=== PATIENT | female | born 1945 | race Caucasian/White ===

== ENCOUNTER 2022-09-29 09:49 | Observation (INO) ==
[2022-09-29] MEDS ORDERED: IOPAMIDOL 100 ML BOTTLE IV ONE (09:50)
--- NOTE | 2022-09-29 09:59 | Emergency Department Note ---
HPI General Chief complaint: Dizziness Stated complaint: dizzy Time Seen by Provider: 09/29/22 09:59 Source: patient and family Mode of arrival: wheelchair Limitations: no limitations History of Present Illness HPI Narrative: Narrative: Patient is a 76-year-old female with a past medical history of hypertension, st roke, vertigo, hyperlipidemia, and adjustment disorder with mixed anxiety and depressed mood who presents to the emergency department due to dizziness and tingling. She initially went to [facility] care, and they decided to send her to the emergency department due to concern for left upper extremity tingling. At this time she states that at approximately 845 she began to have symptoms. She states at that time she had dizziness, which she describes as room spinning dizziness, nausea, and tingling throughout her body. She states that this then became just left hand tingling, but she also describes a pain in her left hand. Her son and [id number] are present and they describe some word finding difficulty and also difficulty in interpreting what is being said to her. She does endorse some weakness in left upper and lower extremities. She denies any other symptoms at this time. Related Data Home Medications Medication Instructions Recorded Confirmed magnesium oxide 400 mg (241.3 mg 800 mg PO HS 08/17/16 09/29/22 magnesium) tablet cyanocobalamin (vitamin B-12) 500 500 mcg PO QDAY 08/25/17 09/29/22 mcg tablet (Vitamin B-12) pantoprazole 40 mg tablet,delayed 40 mg PO QDAY 11/15/18 09/29/22 release aspirin 81 mg tablet,delayed 81 mg PO .3x/week 09/13/19 09/29/22 release (Aspir-) trazodone 50 mg PO DAILY 09/29/22 09/29/22 Previous Rx's Medication Instructions Recorded estradiol 1 mg tablet 1 mg PO QDAY #90 tabs 10/12/21 rosuvastatin 5 mg tablet 5 mg PO QDAY #90 tabs 10/12/21 solifenacin 5 mg tablet 5 mg PO QDAY #90 tabs 10/12/21 bupropion HCl 300 mg 24 hr tablet, 300 mg PO DAILY depression #90 tabs 06/16/22 extended release Allergies Allergy/AdvReac Type Severity Reaction Status Date / Time Sulfa (Sulfonamide Allergy Severe Anaphylaxis Verified 09/29/22 09:53 Antibiotics) morphine Allergy Shakes Verified 09/29/22 09:53 after surgery meperidine [From Demerol] AdvReac Intermediate shaking Verified 09/29/22 09:53 rosuvastatin [From Crestor] AdvReac Unknown Muscle Pain Verified 09/29/22 09:53 Review of Systems ROS ROS Narrative: Narrative: Constitutional: Denies fever or weakness Eyes: Denies eye pain or vision change ENT ED: Denies throat pain or rhinorrhea Cardiovascular: Denies chest pain, dyspnea on exertion, orthopnea or edema Respiratory: Denies shortness of breath or cough Gastrointestinal: Denies abdominal pain, nausea, vomiting, diarrhea, constipation, hematochezia or melena Musculoskeletal: Denies back pain or myalgia Integumentary: Denies rash or lesions Neurological: Reports weakness, numbness and dizziness; Denies headache, confusion or abnormal gait Endocrine: Denies fatigue or polyuria Hematological/Lymphatic: Denies easy bleeding or easy bruising PFSH Narrative Patient History Narrative: Narrative: Medical/Surgical/Family History All Active Problems (Updated 09/29/22 @ 15:14 by Morro Staton MD) Dizziness (Acute) Weakness (Acute) Adjustment disorder with mixed anxiety and depressed mood (Acute) Persistent fatigue after COVID-19 (Acute) Exposure to COVID-19 virus (Acute) Syncope and collapse (Acute) Right sciatic nerve pain (Chronic) Thrush, oral (Acute) Geographic tongue (Chronic) Hypertension, essential (Chronic) Medicare annual wellness visit, subsequent (Acute) Shingles (Acute) Unsteady gait (Acute) Cellulitis (Acute) Bee sting (Acute) Epistaxis (Acute) Herpes zoster (Acute) Impetigo (Acute) Decreased calculated GFR (Acute) Sprain of cervical neck (Acute) Epistaxis not due to trauma (Acute) Neck pain (Chronic) OAB (overactive bladder) (Chronic) Cellulitis (Acute) Stroke (Chronic ~03/02/15) Joint pain (Chronic) Acid reflux (Chronic) Upper respiratory infection (Acute) Maxillary sinusitis (Acute) Cataracts, bilateral (Chronic) Bacterial conjunctivitis (Acute) Knee pain (Acute) Osteoarthritis (Chronic) Sorethroat (Acute) Esophagitis (Chronic) Bee sting reaction (Chronic) Unstable balance (Chronic) Vertigo (Chronic) Heterotopia (Chronic) Skin lesion of right upper extremity (Chronic) Foot arch pain (Chronic) Urinary incontinence (Chronic) Stress reaction (Chronic 03/29/13) Skin sensation disturbance (Chronic) Allergic dermatitis (Chronic 07/30/13) Poliomyelitis acute, late effect (Chronic) Dysphagia (Chronic 09/01/13) Osteopenia (Chronic) Myalgia (Chronic 04/25/14) Leukocytopenia (Chronic) Irritable bowel syndrome (Chronic) Insomnia (Chronic 03/29/13) Hyperlipidemia (Chronic) Hormone replacement therapy (postmenopausal) (Chronic) Hemorrhoids (Chronic 07/20/12) Diplopia (Chronic 02/01/12) Depressive disorder (Chronic) Benign neoplasm of colon (Chronic) Atrophy of muscle of right lower leg (Chronic 07/30/13) TIA (transient ischemic attack) (Chronic 01/18/12) Medical History (Updated 09/29/22 @ 15:14 by Morro Staton MD) Abscess of skin or subcutaneous tissue Acid reflux Well-controlled with Protonix 40 mg every morning Allergic dermatitis (07/30/13) Pruritic Dermatitis Atrophy of muscle of right lower leg (07/30/13) D/T polio Bee sting Bee sting reaction Benign neoplasm of colon 06/12 adenoma. 07/16 normal. 10 year follow-up. Bursitis of right patella (02/01/13) Right knee Bursitis, hip Candidal vaginitis (07/31/14) Cellulitis Cerumen impaction (09/24/14) Decreased calculated GFR GFR 49. Possible CKD stage III. We will check BMP again now. Consider discontinuing NSAIDs Depressive disorder Diplopia (02/01/12) Dysphagia (09/01/13) Epidermal inclusion cyst (06/10/15) Right Forearm Foot arch pain bilateral due to very high arches post polio Hemorrhoids (07/20/12) Herpes simplex Lip Heterotopia Subependymal nodular heterotopia History of TIA (Transient Ischemic Attack) and Stroke 04/01/15-no symptoms since. Hormone replacement therapy (postmenopausal) Does not want to decrease it. Hyperlipidemia History of TIA. Not tolerating statins. Recent trial of low-dose Crestor causing back pain, but may have been due to zoster. We will try Crestor 5 mg daily again Check lipid panel today, off Crestor for several months. Insomnia (03/29/13) Did not tolerate trazodone Taking Tylenol PM most nights Irritable bowel syndrome Joint pain Left arm cellulitis Leukocytopenia Medicare annual wellness visit, subsequent Myalgia (04/25/14) Neck pain Likely osteoarthritis of multiple joints. She may take the meloxicam occasionally as needed for now OAB (overactive bladder) Did not tolerate Vesicare 10 mg daily (dry mouth) Taking 5 mg nightly Osteopenia Mild osteopenia resolved. Most recent T score -0.9 at the left femoral neck. Appears to have been on Fosamax for about 10 years, due to history of polio. No history of bone fractures. Discontinue Fosamax. Continue calcium and vitamin D and daily weightbearing exercise. Poliomyelitis acute, late effect right leg muscle atrophy and foot deformities from polio Skin lesion of right upper extremity suspicious for nodular BCC Skin sensation disturbance with bowel movements Stress reaction (03/29/13) Stroke (~03/02/15) TIA (transient ischemic attack) (01/18/12) h/o Crestor 5 mg daily, aspirin 81 mg 3 times per week Unstable balance Unstable on feet Urinary incontinence ANTONIO Vertigo Surgical History History of appendectomy History of colonoscopy 07/16 10 year f/u History of esophagogastroduodenoscopy (08/12/16) 08/25/20 08/12/16-Schatzki ring and esophagitis 06/05/14 History of foot surgery Right subtalar fusion, multiple surgeries for polio deformities History of hysterectomy with one retained ovary ? which side History of knee surgery 04/17 Right prepatellra bursa excision History of left breast biopsy ? of which side History of tonsillectomy S/P skin biopsy (06/10/15) Right Forearm Family History Brother Malignant neoplasm of brain Colon cancer Father Major depressive disorder Arthritis Dementia Mother Major depressive disorder Arthritis Social History Smoking Status: Never smoker Alcohol Intake Frequency: holiday/special occasion only Substance Use: does not use Exam Narrative Narrative: Narrative: General Limitations: no limitations General appearance: Present alert and in no apparent distress; Absent anxious, appears intoxicated or sleepy Head Head: Present atraumatic and normocephalic Eye Eye: Present PERRL, EOMI and visual ceballos intact; Absent scleral icterus or nystagmus ENT ENT: Present mucous membranes moist; Absent nasal congestion Neck Neck: Present full ROM; Absent tenderness Chest Chest: Present normal inspection and symmetric chest wall rise; Absent tenderness Respiratory Respiratory: Present normal lung sounds bilaterally; Absent respiratory distress or accessory muscle use Cardiovascular Cardiovascular: Present regular rate, normal rhythm and normal heart sounds Adbominal Abdominal: Present soft; Absent distention Extremities Extremities: Present normal inspection and full ROM; Absent pedal edema or pretibial edema Back Back: Present normal inspection and full ROM; Absent tenderness Neurological Neurological: Present alert, oriented X3, CN II-XII intact, motor sensory deficit (Left upper extremity and lower extremity motor drift, decreased sensation in left upper extremity) and reflexes normal Psychiatric Psychiatric: Present normal affect and normal mood Skin Skin: Present warm (WNL), dry and normal color Course Vital Signs Vital signs: Vital Signs Pulse Rate 80 09/29/22 09:50 Respiratory Rate 19 09/29/22 09:50 Blood Pressure 153/78 09/29/22 09:50 Pulse Oximetry (%) 98 09/29/22 09:50 Oxygen Delivery Method Room Air 09/29/22 09:50 Temperature 97.6 F 09/29/22 14:22 Pulse Rate 77 09/29/22 14:22 Respiratory Rate 22 09/29/22 14:22 Blood Pressure 153/64 09/29/22 14:22 Pulse Oximetry (%) 97 09/29/22 14:22 Oxygen Delivery Method Room Air 09/29/22 14:22 [facility] MDM Narrative Medical decision making narrative: Narrative: Patient is a 76-year-old female who presents to the emergency department due to dizziness and tingling. At the time of my evaluation patient did begin to endorse different sensation with decree sensation in the left and weakness on the left, and for these reasons a stroke alert was called. I spoke to Dr. Medina with teleneurology. She spoke with the patient and evaluated patient in CT after CT head without was performed. The decision was made to not give TNKase given inconsistent symptoms and improving symptoms. Patient initially had an NIH stroke scale of 4 due to left upper and lower extremity weakness, left upper extremity decree sensation, and word finding difficulties. Patient's symptoms were not consistent though because when she was evaluated by teleneurology she was describing a decrease in sensation on the right. Despite this and because of a history of stroke/TIA the telemetry neurologist did recommend TIA work-up to be cautious. Patient's labs and images were reassuring. I spoke with Dr. Avalos who agreed to see and evaluate patient for admission. Lab Data 09/29/22 10:25 Labs: Lab Results 09/29/22 09/29/22 09/29/22 Range/Units 09:58 10:25 10:25 WBC 6.2 (4.5-11.0) K/mcL RBC 4.26 (3.59-5.38) M/mcL Hgb 12.6 (11.2-15.7) g/dL Hct 39.1 (34.1-44.9) % POC Hct 38.0 (36-48) MCV 91.8 (80.0-100.0) fL MCH 29.6 (26.0-34.0) pg MCHC 32.2 (31.0-36.0) g/dL RDW 12.4 (11.5-14.5) % Plt Count 255 (140-440) K/mcL MPV 10.2 (8.8-12.5) fL Immature Gran % (Auto) 0.3 (0.0-0.5) % Neut % (Auto) 64.3 (38.0-78.0) % Lymph % (Auto) 24.1 (15.5-49.0) % [place] % (Auto) 8.6 (1.0-12.0) % Eos % (Auto) 1.9 (0.0-7.0) % Baso % (Auto) 0.8 (0.0-2.0) % Lymph # (Auto) 1.49 L (1.50-4.80) K/mcL [place] # (Auto) 0.53 (0.10-0.90) K/mcL Eos # (Auto) 0.12 (0.00-0.70) K/mcL Baso # (Auto) 0.05 (0.00-0.30) K/mcL Immature Gran # 0.02 (0.00-0.05) K/mcl Absolute Neutrophils 3.98 (1.80-8.00) K/mcL POC PT (11.9-14.5) POC INR (0.8-1.2) APTT 31.0 (20.0-37.0) sec POC Sodium 140 (133-145) POC Potassium 4.2 (3.3-5.1) POC Chloride 102 (96-108) POC Total CO2 29.0 (22-30) POC BUN 27 H (6-20) POC Creatinine 1.3 H (0.6-1.2) POC Glucose 100 (70-105) POC WB Ioniz Calcium 1.22 (1.16-1.32) Total Bilirubin (0.1-1.0) mg/dL Direct Bilirubin (0-0.3) mg/dL AST (<32) U/L ALT (<40) U/L Alkaline Phosphatase (39-117) U/L Total Protein (5.9-8.4) gm/dL Albumin (3.2-5.2) gm/dL Globulin (2.2-3.7) gm/dL TSH (0.27-5.01) uIU/mL Urine Color Urine Appearance (Clear) Urine pH (5.0-9.0) Ur Specific [place] (1.000-1.035) Urine Protein (Negative) mg/dL Urine Glucose (UA) (Negative) mg/dL Urine Ketones (Negative) mg/dL Urine Occult Blood (Negative) amberly/mcL Urine Nitrate (Negative) Urine Bilirubin (Negative) mg/dL Urine Urobilinogen mg/dL Ur Leukocyte Esterase (Negative) /uL Ur Culture Indicated? POC Troponin I (0.00-0.08) 09/29/22 09/29/22 09/29/22 Range/Units 10:25 10:30 11:30 WBC (4.5-11.0) K/mcL RBC (3.59-5.38) M/mcL Hgb (11.2-15.7) g/dL Hct (34.1-44.9) % POC Hct (36-48) MCV (80.0-100.0) fL MCH (26.0-34.0) pg MCHC (31.0-36.0) g/dL RDW (11.5-14.5) % Plt Count (140-440) K/mcL MPV (8.8-12.5) fL Immature Gran % (Auto) (0.0-0.5) % Neut % (Auto) (38.0-78.0) % Lymph % (Auto) (15.5-49.0) % Dougherty % (Auto) (1.0-12.0) % Eos % (Auto) (0.0-7.0) % Baso % (Auto) (0.0-2.0) % Lymph # (Auto) (1.50-4.80) K/mcL [place] # (Auto) (0.10-0.90) K/mcL Eos # (Auto) (0.00-0.70) K/mcL Baso # (Auto) (0.00-0.30) K/mcL Immature Gran # (0.00-0.05) K/mcl Absolute Neutrophils (1.80-8.00) K/mcL POC PT (11.9-14.5) POC INR (0.8-1.2) APTT (20.0-37.0) sec POC Sodium (133-145) POC Potassium (3.3-5.1) POC Chloride (96-108) POC Total CO2 (22-30) POC BUN (6-20) POC Creatinine (0.6-1.2) POC Glucose (70-105) POC WB Ioniz Calcium (1.16-1.32) Total Bilirubin 0.2 (0.1-1.0) mg/dL Direct Bilirubin < 0.2 (0-0.3) mg/dL AST 17 (<32) U/L ALT 24 (<40) U/L Alkaline Phosphatase 83 (39-117) U/L Total Protein 6.6 (5.9-8.4) gm/dL Albumin 4.1 (3.2-5.2) gm/dL Globulin 2.5 (2.2-3.7) gm/dL TSH 2.62 (0.27-5.01) uIU/mL Urine Color Urine Appearance (Clear) Urine pH (5.0-9.0) Ur Specific [place] (1.000-1.035) Urine Protein (Negative) mg/dL Urine Glucose (UA) (Negative) mg/dL Urine Ketones (Negative) mg/dL Urine Occult Blood (Negative) amberly/mcL Urine Nitrate (Negative) Urine Bilirubin (Negative) mg/dL Urine Urobilinogen mg/dL Ur Leukocyte Esterase (Negative) /uL Ur Culture Indicated? POC Troponin I < 0.02 (0.00-0.08) 09/29/22 09/29/22 Range/Units 12:00 12:17 WBC (4.5-11.0) K/mcL RBC (3.59-5.38) M/mcL Hgb (11.2-15.7) g/dL Hct (34.1-44.9) % POC Hct (36-48) MCV (80.0-100.0) fL MCH (26.0-34.0) pg MCHC (31.0-36.0) g/dL RDW (11.5-14.5) % Plt Count (140-440) K/mcL MPV (8.8-12.5) fL Immature Gran % (Auto) (0.0-0.5) % Neut % (Auto) (38.0-78.0) % Lymph % (Auto) (15.5-49.0) % [place]herty % (Auto) (1.0-12.0) % Eos % (Auto) (0.0-7.0) % Baso % (Auto) (0.0-2.0) % Lymph # (Auto) (1.50-4.80) K/mcL [place] # (Auto) (0.10-0.90) K/mcL Eos # (Auto) (0.00-0.70) K/mcL Baso # (Auto) (0.00-0.30) K/mcL Immature Gran # (0.00-0.05) K/mcl Absolute Neutrophils (1.80-8.00) K/mcL POC PT 14.0 (11.9-14.5) POC INR 1.2 (0.8-1.2) APTT (20.0-37.0) sec POC Sodium (133-145) POC Potassium (3.3-5.1) POC Chloride (96-108) POC Total CO2 (22-30) POC BUN (6-20) POC Creatinine (0.6-1.2) POC Glucose (70-105) POC WB Ioniz Calcium (1.16-1.32) Total Bilirubin (0.1-1.0) mg/dL Direct Bilirubin (0-0.3) mg/dL AST (<32) U/L ALT (<40) U/L Alkaline Phosphatase (39-117) U/L Total Protein (5.9-8.4) gm/dL Albumin (3.2-5.2) gm/dL Globulin (2.2-3.7) gm/dL TSH (0.27-5.01) uIU/mL Urine Color Lt. yellow Urine Appearance Clear (Clear) Urine pH 7.0 (5.0-9.0) Ur Specific [place] <= 1.005 (1.000-1.035) Urine Protein Negative (Negative) mg/dL Urine Glucose (UA) Negative (Negative) mg/dL Urine Ketones Negative (Negative) mg/dL Urine Occult Blood Negative (Negative) amberly/mcL Urine Nitrate Negative (Negative) Urine Bilirubin Negative (Negative) mg/dL Urine Urobilinogen Normal mg/dL Ur Leukocyte Esterase Negative (Negative) /uL Ur Culture Indicated? No POC Troponin I (0.00-0.08) EKG Data EKG #1: EKG attestation: Yes I reviewed and interpreted this EKG. EKG results narrative: Normal sinus rhythm with a rate of 80, normal axis, NC 162, QRS of 91, QTC of 436, T wave flattening in lead aVL, and absence of ST elevation or depression. Discharge Plan Patient/Caregiver Discharge Instructions Pt seen by CHAMBER WORKER/PA only: No Clinical Impression: Dizziness, Weakness Patient Disposition: Xfer As Inpt ([facility]) Condition: Fair Discharge Date/Time: 09/29/22 14:15
[2022-09-29 10:03] LABS: POC Calcium, Ionized 1.22 (1.16-1.32); POC Creatinine 1.3 (0.6-1.2); POC Potassium 4.2 (3.3-5.1)
[2022-09-29] MEDS ORDERED: TENECTEPLASE 50 MG/10 ML VIAL IV ONE (10:39)
--- NOTE | 2022-09-29 10:44 | Cat Scan Report ---
CLINICAL INFORMATION: Stroke COMPARISON: None. TECHNIQUE: 2.5 mm helical slices were obtained in the skull base to vertex. Following reconstruction, axial reformatted images were reviewed at bone and parenchymal windows. The exam was performed using radiation dose optimization techniques including, but not limited to, automated exposure control, adjustment of the mA and/or kV according to patient size and use of iterative reconstruction technique. FINDINGS: The ventricles, sulci, fissures, and cisterns are symmetrically enlarged compatible with mild age-related atrophy. No extra-axial fluid collections are identified. Mild patchy chronic ischemic changes, in the deep cerebral white matter, are expected for age. There is no hemorrhage, mass effect, or edema. Bone windows show no osseous abnormality. IMPRESSION: Mild atrophy and chronic ischemic changes in the deep cerebral white matter-expected for age. No acute findings Interpreted and Authenticated by: Matt White 09/29/22
[2022-09-29 10:55] LABS: Basophils # (Auto) 0.05 K/mcL (0.00-0.30); Basophils % (Auto) 0.8 % (0.0-2.0); Eosinophils # (Auto) 0.12 K/mcL (0.00-0.70); Eosinophils % (Auto) 1.9 % (0.0-7.0); Hematocrit 39.1 % (34.1-44.9); Hemoglobin 12.6 g/dL (11.2-15.7); Lymphocytes # (Auto) 1.49 K/mcL (1.50-4.80); Lymphocytes % (Auto) 24.1 % (15.5-49.0); Mean Cell Volume 91.8 fL (80.0-100.0); Mean Corpuscular HGB Conc 32.2 g/dL (31.0-36.0); Mean Platelet Volume 10.2 fL (8.8-12.5); Monocytes # (Auto) 0.53 K/mcL (0.10-0.90); Monocytes % (Auto) 8.6 % (1.0-12.0); Neutrophils % (Auto) 64.3 % (38.0-78.0); Platelet Count 255 K/mcL (140-440); RBC 4.26 M/mcL (3.59-5.38); Red Cell Distribution Width 12.4 % (11.5-14.5); WBC 6.2 K/mcL (4.5-11.0)
[2022-09-29] MEDS ORDERED: LACTATED RINGERS 1,000 ML IV ONE (10:57)
[2022-09-29 11:26] LABS: ALT/SGPT 24 U/L (<40); AST/SGOT 17 U/L (<32); Albumin 4.1 gm/dL (3.2-5.2); Alkaline Phosphatase 83 U/L (39-117); Bilirubin,Direct < 0.2 mg/dL (0-0.3); Bilirubin,Total 0.2 mg/dL (0.1-1.0); Globulin 2.5 gm/dL (2.2-3.7)
--- NOTE | 2022-09-29 11:46 | Cat Scan Report ---
CLINICAL INFORMATION: Code stroke COMPARISON: None. TECHNIQUE: 80 cc of Isovue-370 were injected intravenously , and using SmartPrep to maximize cerebral arterial opacification, 0.625 mm helical slices were obtained from the skull base through the cerebral vertex. Following reconstruction , sagittal, coronal and axial reformatted images were processed and reviewed at multiple windows and levels. 3D volume rendered and MIP images were acquired at a independent workstation. The exam was performed using radiation dose optimization techniques including, but not limited to, automated exposure control, adjustment of the mA and/or kV according to patient size and use of iterative reconstruction technique. FINDINGS: The intracranial internal carotid, vertebral, basilar, anterior, middle and posterior cerebral arteries and their branches are well-opacified and normal in contour and caliber without significant stenosis, occlusion or other pathology. Superficial/deep cerebral veins and deep venous sinuses are widely patent IMPRESSION: Normal exam Interpreted and Authenticated by: Matt White 09/29/22
--- NOTE | 2022-09-29 11:50 | Cat Scan Report ---
CLINICAL INFORMATION: Code stroke COMPARISON: None. TECHNIQUE: 80 cc of Isovue-300 were injected intravenously followed by 40 cc of normal saline flush. Using SmartPrep, 0.625 helical slices were obtained from the thoracic aortic arch through the [place]. Following reconstruction, 2.5 mm sagittal, coronal and axial reformatted images were processed. MIPS , 3-D volume rendering and CPR images were also constructed. The exam was performed using radiation dose optimization techniques including, but not limited to, automated exposure control, adjustment of the mA and/or kV according to patient size and use of iterative reconstruction technique. FINDINGS: The thoracic aortic arch is normal diameter with minimal intimal thickening and conventional aortic branching. The brachiocephalic, both subclavian, both common, internal and external carotid and both vertebral arteries are widely patent without significant abnormality. No soft tissue abnormality. At C3-4, moderate broad disc spur complex left-sided asymmetry results in severe left IV foraminal narrowing with exiting left C4 nerve root impingement. Mild degenerative change seen at the remaining levels IMPRESSION: Normal thoracic aortic arch, brachycephalic, all carotid, vertebral and subclavian arteries. C3-4: Moderate broad disc spur complex with left-sided asymmetry resulting in severe left IV foraminal narrowing and exiting left C4 nerve root impingement Interpreted and Authenticated by: Matt White 09/29/22
--- NOTE | 2022-09-29 12:06 | EKG ---
[facility] Test Date: 2022-09-29 Pat Name: Guerita Lerma Department: ED Room: Gender: Female Hospice Nurse Practitioner: LR : 1945 Requested By: Morro Staton Order Number: [id number] Reading MD: Matt Herrera M.D. Measurements Intervals [place] Rate: 80 P: 58 NC: 162 QRS: 34 QRSD: 91 T: 45 QT: 378 QTc: 436 Interpretive Statements Sinus rhythm Probable left atrial enlargement Electronically Signed On 09-29-2022 12:06:28 PST by Matt Herrera M.D. /store/TR/[id number]
[2022-09-29 12:22] LABS: POC INR 1.2 (0.8-1.2)
[2022-09-29 13:08] LABS: Appearance,Urine CLEAR (Clear); Bilirubin,Urine NEGATIVE (Negative); Color,Urine LT. YELLOW; Culture Indicated,Urine No; Glucose,Urine (UA) NEGATIVE (Negative); Ketones,Urine NEGATIVE (Negative); Leukocyte Esterase,Urine NEGATIVE /uL (Negative); Nitrate,Urine NEGATIVE (Negative); Protein,Urine NEGATIVE (Negative); Specific Gravity,Urine <= 1.005 (1.000-1.035); Urine Blood NEGATIVE ery/mcL (Negative); Urobilinogen,Urine Normal
--- NOTE | 2022-09-29 13:41 | Internal Med History&Physical ---
HPI History of Present Illness Patient information: Note initiated : 09/29/22 at 1:37 pm Service Date, if different from initiated Date: [] Patient: Guerita Lerma a 76 y/o F admitted on for dizzy. Chief Complaint: [LUE paresthesia, dizziness] Chief complaint: Paresthesia History of present illness: Ms. Lerma is a 76 year old F with a past medical history significant for depression, hypertension, and prior TIA presents to the hospital with left upper extremity paresthesia and dizziness. The patient was at the [facility] when her symptoms began. She went to urgent care initially and was told to come to the ER. The patient's symptoms were nonspecific and were nonfocal. She initially had left-sided symptoms Endorse right-sided symptoms. When I evaluated her in the ER, her symptoms resolved. She was alert, oriented and fully conversant. The ER physician spoke with telemetry neurology who recommended stroke work-up with MRI and echocardiogram. The hospital service was asked admit the patient for further management and evaluation. Of note, there were also concerns for generalized grief syndrome as the patient recently lost her . Of note she was also recently seen by her primary care physician who increased her Wellbutrin dose. Review of Systems All systems: reviewed and no additional remarkable complaints except as stated Constitutional Constitutional: Present as per HPI EENT Eyes: Present as per HPI; Absent blurry vision Cardiovascular Cardiovascular: Present as per HPI; Absent chest pain, dyspnea, dyspnea on exertion, leg edema or palpatations Respiratory Respiratory: Present as per HPI; Absent cough, dyspnea, dyspnea on exertion, wheezing or stridor Gastrointestinal Gastrointestinal: Present as per HPI; Absent abdominal pain, diarrhea, dysphagia, hematemesis, melena, nausea or vomiting Musculoskeletal Musculoskeletal: Present as per HPI; Absent joint swelling, limited range of motion, muscle cramps, muscle weakness or myalgias Integumentary Integumentary: Present as per HPI; Absent erythema, new lesions, rash or wounds Neurological Neurological: Present as per HPI; Absent abnormal gait, behavioral changes, foca l weakness, headache(s), loss of vision, numbness, sensory deficit or syncope Endocrine Endocrine: Absent change in body appearance, fatigue or heat intolerance Hematologic/Lymphatic Hematologic/Lymphatic: Present as per HPI PFSH PFSH All Active Problems (Updated 09/22/22 @ 18:48 by Yu Clinton LCSW) Adjustment disorder with mixed anxiety and depressed mood (Acute) Persistent fatigue after COVID-19 (Acute) Exposure to COVID-19 virus (Acute) Syncope and collapse (Acute) Right sciatic nerve pain (Chronic) Thrush, oral (Acute) Geographic tongue (Chronic) Hypertension, essential (Chronic) Medicare annual wellness visit, subsequent (Acute) Shingles (Acute) Unsteady gait (Acute) Cellulitis (Acute) Bee sting (Acute) Epistaxis (Acute) Herpes zoster (Acute) Impetigo (Acute) Decreased calculated GFR (Acute) Sprain of cervical neck (Acute) Epistaxis not due to trauma (Acute) Neck pain (Chronic) OAB (overactive bladder) (Chronic) Cellulitis (Acute) Stroke (Chronic ~03/02/15) Joint pain (Chronic) Acid reflux (Chronic) Upper respiratory infection (Acute) Maxillary sinusitis (Acute) Cataracts, bilateral (Chronic) Bacterial conjunctivitis (Acute) Knee pain (Acute) Osteoarthritis (Chronic) Sorethroat (Acute) Esophagitis (Chronic) Bee sting reaction (Chronic) Unstable balance (Chronic) Vertigo (Chronic) Heterotopia (Chronic) Skin lesion of right upper extremity (Chronic) Foot arch pain (Chronic) Urinary incontinence (Chronic) Stress reaction (Chronic 03/29/13) Skin sensation disturbance (Chronic) Allergic dermatitis (Chronic 07/30/13) Poliomyelitis acute, late effect (Chronic) Dysphagia (Chronic 09/01/13) Osteopenia (Chronic) Myalgia (Chronic 04/25/14) Leukocytopenia (Chronic) Irritable bowel syndrome (Chronic) Insomnia (Chronic 03/29/13) Hyperlipidemia (Chronic) Hormone replacement therapy (postmenopausal) (Chronic) Hemorrhoids (Chronic 07/20/12) Diplopia (Chronic 02/01/12) Depressive disorder (Chronic) Benign neoplasm of colon (Chronic) Atrophy of muscle of right lower leg (Chronic 07/30/13) TIA (transient ischemic attack) (Chronic 01/18/12) Medical History (Updated 09/22/22 @ 18:48 by Yu Clinton LCSW) Abscess of skin or subcutaneous tissue Acid reflux Well-controlled with Protonix 40 mg every morning Allergic dermatitis (07/30/13) Pruritic Dermatitis Atrophy of muscle of right lower leg (07/30/13) D/T polio Bee sting Bee sting reaction Benign neoplasm of colon 06/12 adenoma. 11/11 normal. 10 year follow-up. Bursitis of right patella (02/01/13) Right knee Bursitis, hip Candidal vaginitis (07/31/14) Cellulitis Cerumen impaction (09/24/14) Decreased calculated GFR GFR 49. Possible CKD stage III. We will check BMP again now. Consider discontinuing NSAIDs Depressive disorder Diplopia (02/01/12) Dysphagia (09/01/13) Epidermal inclusion cyst (06/10/15) Right Forearm Foot arch pain bilateral due to very high arches post polio Hemorrhoids (07/20/12) Herpes simplex Lip Heterotopia Subependymal nodular heterotopia History of TIA (Transient Ischemic Attack) and Stroke 04/01/15-no symptoms since. Hormone replacement therapy (postmenopausal) Does not want to decrease it. Hyperlipidemia History of TIA. Not tolerating statins. Recent trial of low-dose Crestor causing back pain, but may have been due to zoster. We will try Crestor 5 mg daily again Check lipid panel today, off Crestor for several months. Insomnia (03/29/13) Did not tolerate trazodone Taking Tylenol PM most nights Irritable bowel syndrome Joint pain Left arm cellulitis Leukocytopenia Medicare annual wellness visit, subsequent Myalgia (04/25/14) Neck pain Likely osteoarthritis of multiple joints. She may take the meloxicam occasionally as needed for now OAB (overactive bladder) Did not tolerate Vesicare 10 mg daily (dry mouth) Taking 5 mg nightly Osteopenia Mild osteopenia resolved. Most recent T score -0.9 at the left femoral neck. Appears to have been on Fosamax for about 10 years, due to history of polio. No history of bone fractures. Discontinue Fosamax. Continue calcium and vitamin D and daily weightbearing exercise. Poliomyelitis acute, late effect right leg muscle atrophy and foot deformities from polio Skin lesion of right upper extremity suspicious for nodular BCC Skin sensation disturbance with bowel movements Stress reaction (03/29/13) Stroke (~03/02/15) TIA (transient ischemic attack) (01/18/12) h/o Crestor 5 mg daily, aspirin 81 mg 3 times per week Unstable balance Unstable on feet Urinary incontinence ANTONIO Vertigo Surgical History History of appendectomy History of colonoscopy 07/16 10 year f/u History of esophagogastroduodenoscopy (08/12/16) 08/25/20 08/12/16-Schatzki ring and esophagitis 06/05/14 History of foot surgery Right subtalar fusion, multiple surgeries for polio deformities History of hysterectomy with one retained ovary ? which side History of knee surgery 04/17 Right prepatellra bursa excision History of left breast biopsy ? of which side History of tonsillectomy S/P skin biopsy (06/10/15) Right Forearm Family History Brother Malignant neoplasm of brain Colon cancer Father Major depressive disorder Arthritis Dementia Mother Major depressive disorder Arthritis Social History (Updated 09/22/22 @ 18:22 by Yu Clinton LCSW) household members: alone housing: house lives independently: Yes marital status: education level: high school occupational status: retired occupation: school aid leisure activities: other other: 1 adult child; 1 son physical activity: walking and swimming smoking status: Never smoker alcohol intake frequency: holiday/special occasion only substance use type: does not use additional history: August 06, 2022 MEDS/ALLERGIES Home Medications and Allergies Home Medications Medication Instructions Recorded Confirmed Type magnesium oxide 400 mg (241.3 mg 800 mg PO HS 08/17/16 09/29/22 History magnesium) tablet cyanocobalamin (vitamin B-12) 500 500 mcg PO QDAY 08/25/17 09/29/22 History mcg tablet (Vitamin B-12) pantoprazole 40 mg tablet,delayed 40 mg PO QDAY 11/15/18 09/29/22 History release aspirin 81 mg tablet,delayed 81 mg PO .3x/week 09/13/19 09/29/22 History release (Aspir-) estradiol 1 mg tablet 1 mg PO QDAY #90 tabs 10/12/21 09/29/22 Rx rosuvastatin 5 mg tablet 5 mg PO QDAY #90 tabs 10/12/21 09/29/22 Rx solifenacin 5 mg tablet 5 mg PO QDAY #90 tabs 10/12/21 09/29/22 Rx bupropion HCl 300 mg 24 hr tablet, 300 mg PO DAILY depression #90 tabs 06/16/22 09/29/22 Rx extended release trazodone 50 mg PO DAILY 09/29/22 09/29/22 History Allergies Allergy/AdvReac Type Severity Reaction Status Date / Time Sulfa (Sulfonamide Allergy Severe Anaphylaxis Verified 09/29/22 09:53 Antibiotics) morphine Allergy Shakes Verified 09/29/22 09:53 after surgery meperidine [From Demerol] AdvReac Intermediate shaking Verified 09/29/22 09:53 rosuvastatin [From Crestor] AdvReac Unknown Muscle Pain Verified 09/29/22 09:53 EXAM Constitutional Vitals: Pulse Resp BP Pulse Ox O2 Del Method 73 14 130/80 99 Room Air 09/29/22 13:01 09/29/22 13:01 09/29/22 13:01 09/29/22 11:45 09/29/22 09:50 DATA Data Completed and Pending Labs: Labs from last 24 hours 09/29/22 09/29/22 09/29/22 12:17 12:00 11:30 WBC RBC Hgb Hct POC Hct MCV MCH MCHC RDW Plt Count MPV Immature Gran % (Auto) Neut % (Auto) Lymph % (Auto) [place] % (Auto) Eos % (Auto) Baso % (Auto) Lymph # (Auto) [place] # (Auto) Eos # (Auto) Baso # (Auto) Immature Gran # Absolute Neutrophils POC PT 14.0 POC INR 1.2 APTT POC Sodium POC Potassium POC Chloride POC Total CO2 POC BUN POC Creatinine POC Glucose POC WB Ioniz Calcium Total Bilirubin Direct Bilirubin AST ALT Alkaline Phosphatase Total Protein Albumin Globulin TSH Urine Color Lt. yellow Urine Appearance Clear Urine pH 7.0 Ur Specific [place] <= 1.005 Urine Protein Negative Urine Glucose (UA) Negative Urine Ketones Negative Urine Occult Blood Negative Urine Nitrate Negative Urine Bilirubin Negative Urine Urobilinogen Normal Ur Leukocyte Esterase Negative Ur Culture Indicated? No POC Troponin I < 0.02 09/29/22 09/29/22 09/29/22 10:30 10:25 10:25 WBC RBC Hgb Hct POC Hct MCV MCH MCHC RDW Plt Count MPV Immature Gran % (Auto) Neut % (Auto) Lymph % (Auto) [place] % (Auto) Eos % (Auto) Baso % (Auto) Lymph # (Auto) [place] # (Auto) Eos # (Auto) Baso # (Auto) Immature Gran # Absolute Neutrophils POC PT POC INR APTT 31.0 POC Sodium POC Potassium POC Chloride POC Total CO2 POC BUN POC Creatinine POC Glucose POC WB Ioniz Calcium Total Bilirubin 0.2 Direct Bilirubin < 0.2 AST 17 ALT 24 Alkaline Phosphatase 83 Total Protein 6.6 Albumin 4.1 Globulin 2.5 TSH 2.62 Urine Color Urine Appearance Urine pH Ur Specific [place] Urine Protein Urine Glucose (UA) Urine Ketones Urine Occult Blood Urine Nitrate Urine Bilirubin Urine Urobilinogen Ur Leukocyte Esterase Ur Culture Indicated? POC Troponin I 09/29/22 09/29/22 10:25 09:58 WBC 6.2 RBC 4.26 Hgb 12.6 Hct 39.1 POC Hct 38.0 MCV 91.8 MCH 29.6 MCHC 32.2 RDW 12.4 Plt Count 255 MPV 10.2 Immature Gran % (Auto) 0.3 Neut % (Auto) 64.3 Lymph % (Auto) 24.1 [place] % (Auto) 8.6 Eos % (Auto) 1.9 Baso % (Auto) 0.8 Lymph # (Auto) 1.49 L [place] # (Auto) 0.53 Eos # (Auto) 0.12 Baso # (Auto) 0.05 Immature Gran # 0.02 Absolute Neutrophils 3.98 POC PT POC INR APTT POC Sodium 140 POC Potassium 4.2 POC Chloride 102 POC Total CO2 29.0 POC BUN 27 H POC Creatinine 1.3 H POC Glucose 100 POC WB Ioniz Calcium 1.22 Total Bilirubin Direct Bilirubin AST ALT Alkaline Phosphatase Total Protein Albumin Globulin TSH Urine Color Urine Appearance Urine pH Ur Specific [place] Urine Protein Urine Glucose (UA) Urine Ketones Urine Occult Blood Urine Nitrate Urine Bilirubin Urine Urobilinogen Ur Leukocyte Esterase Ur Culture Indicated? POC Troponin I A/P Assessment and plan (1) History of TIA (Transient Ischemic Attack) and Stroke: Status: Suspected Comment: 04/01/15-no symptoms since. Narrative A/P Narrative: The patient will be admitted under observation for further work-up of her po ssible TIA. This is likely not neurological in etiology given her clinical presentation. CTA head and neck was unrevealing however she was noted to have C3-C4 moderate broad disc spur complex with left-sided asymmetry resulting in severe left foraminal narrowing and exiting left for C4 nerve root impingement. MRI and echocardiogram are pending. The patient is already on aspirin and rosuvastatin. We will monitor on telemetry. Continue neurochecks. Time Spent With Patient Time: Total time spent is greater than 50% in coordination of care (as documented) at patient's floor/unit and/or counseling patient: Initial: Total time with patient: 75 - 90 minutes
[2022-09-29] MEDS ORDERED: ACETAMINOPHEN 325 MG TABLET PO PRN (14:41)
[2022-09-29] MEDS ORDERED: LACTULOSE 20 GM/30 ML ORAL.SOL PO PRN (14:41)
[2022-09-29] MEDS ORDERED: ONDANSETRON 4 MG/2 ML VIAL IV PRN (14:41)
[2022-09-29] MEDS ORDERED: SENNOSIDES 1 TABLET PO PRN (14:41)
--- NOTE | 2022-09-29 16:03 | Magnetic Resonance Report ---
CLINICAL INFORMATION: Code stroke COMPARISON: None. TECHNIQUE:Sagittal T1 FLAIR, axial FLAIR T2 propeller, lytic diffusion, and ADC images were acquired. FINDINGS: The ventricles, sulci, fissures and cisterns are symmetrically enlarged compatible with mild age-related atrophy-no extra-axial fluid collections or mass identified. There are no regions of restricted diffusion to suggest acute infarct. No hemorrhage, edema, mass effect or other acute findings. IMPRESSION: Mild atrophy compatible with patient's age. No evidence of acute infarct or other intracerebral abnormality Interpreted and Authenticated by: Matt White 09/29/22
[2022-09-29] MEDS: 0.9 % SODIUM CHLORIDE 10 ML SYRINGE IV SCH ×2 (16:46→21:18)
[2022-09-29] MEDS ORDERED: MELATONIN 3 MG TABLET PO PRN (20:53)
[2022-09-29] MEDS: DOCUSATE SODIUM 100 MG CAPSULE PO SCH (21:18)
[2022-09-30] MEDS: 0.9 % SODIUM CHLORIDE 10 ML SYRINGE IV SCH (05:38)
[2022-09-30] MEDS: DOCUSATE SODIUM 100 MG CAPSULE PO SCH (08:53)
[2022-09-30] MEDS ORDERED: ENOXAPARIN 40 MG/0.4 ML SYRINGE SQ SCH (09:00)
--- NOTE | 2022-09-30 10:47 | Discharge Summary ---
Discharge Provider Provider IMPORTANT FOLLOW-UP INFORMATION FOR PCP: 1. Follow up with PCP within 1 week Patient information: Note initiated : 09/30/22 at 10:44 am Service Date, if different from initiated Date: [] Patient: Guerita Lerma 76 y/o F admitted on 09/29/22 for dizzy. Chief Complaint: [LUE tingling] Date of admission: 09/29/22 14:12 Discharge date: 09/30/22 Primary care physician: Matt Dawson DO Consults: 09/29/22 10:25 Consult to Physician [CONS] Stat Comment: Consulting Provider: [facility] Reason For Exam: Physician to Consult 09/29/22 12:11 Consult to Physician [CONS] Stat Comment: Consulting Provider: Tim Avalos Reason For Exam: Physician to Consult Attending physician on discharge: Tim Avalos COURSE Hospital Course Hospital course: Chief complaint: Paresthesia History of present illness: Ms. Lerma is a 76 year old F with a past medical history significant for depression, hypertension, and prior TIA presents to the hospital with left upper extremity paresthesia and dizziness. The patient was at the [facility] when her symptoms began. She went to urgent care initially and was told to come to the ER. The patient's symptoms were nonspecific and were nonfocal. She initially had left-sided symptoms Endorse right-sided symptoms. When I evaluated her in the ER, her symptoms reso lved. She was alert, oriented and fully conversant. The ER physician spoke with telemetry neurology who recommended stroke work-up with MRI and echocardiogram. The hospital service was asked admit the patient for further management and evaluation. Of note, there were also concerns for generalized grief syndrome as the patient recently lost her . Of note she was also recently seen by her primary care physician who increased her Wellbutrin dose. A/P Narrative: The patient will be admitted under observation for further work-up of her possible TIA. This is likely not neurological in etiology given her clinical presentation. CTA head and neck was unrevealing however she was noted to have C3-C4 moderate broad disc spur complex with left-sided asymmetry resulting in severe left foraminal narrowing and exiting left for C4 nerve root impingement. MRI and echocardiogram are pending. The patient is already on aspirin and rosuvastatin. We will monitor on telemetry. Continue neurochecks. 09/30: The MRI was unrevealing. TTE results are pending. The patient feels well. This may be in the setting of her cervical radiculopathy. Her PCP may want to schedule follow-up with a it support specialist regarding this. Discharge diagnosis: Left upper extremity paresthesia Time Spent with Patient Time attestation: Total time spent providing and/or coordinating discharge services: Time spent: Greater than 30 minutes EXAM Constitutional Vitals: Temp Pulse Resp BP Pulse Ox O2 Del Method 97.5 F 64 20 121/51 100 Room Air 09/30/22 08:00 09/30/22 08:00 09/30/22 10:18 09/30/22 10:18 09/30/22 10:18 09/30/22 04:00 General appearance: average body habitus Head Head exam: Present atraumatic, normal inspection and normocephalic Eye Eye exam: Present EOMI, normal appearance and PERRL; Absent conjunctival injection ENT ENT exam: Present normal exam; Absent mucous membranes dry Neck Neck exam: Present full ROM; Absent lymphadenopathy Respiratory Respiratory exam: Present normal respiratory exam and CTAB; Absent decreased breath sounds, respiratory distress or wheezes Cardiovascular Cardiovascular exam: Present normal rate and rhythm and RRR; Absent JVD GI/Abdominal GI/Abdominal exam: Present normal bowel sounds and soft; Absent diminished bowel sounds, distended, guarding, mass, rebound or tenderness Neurological Exam Neurological exam: Present alert, CN II-XII intact and oriented X3 Psychiatric Psychiatric exam: Present normal affect and normal mood Skin Skin exam: Present intact and warm; Absent erythema, pallor, petechiae or rash Discharge Data Data Completed and Pending Labs on day of discharge: Labs from last 24 hours 09/29/22 09/29/22 09/29/22 12:17 12:00 11:30 WBC RBC Hgb Hct MCV MCH MCHC RDW Plt Count MPV Immature Gran % (Auto) Neut % (Auto) Lymph % (Auto) Power % (Auto) Eos % (Auto) Baso % (Auto) Lymph # (Auto) Power # (Auto) Eos # (Auto) Baso # (Auto) Immature Gran # Absolute Neutrophils POC PT 14.0 POC INR 1.2 APTT Total Bilirubin Direct Bilirubin AST ALT Alkaline Phosphatase Total Protein Albumin Globulin TSH Urine Color Lt. yellow Urine Appearance Clear Urine pH 7.0 Ur Specific [place] <= 1.005 Urine Protein Negative Urine Glucose (UA) Negative Urine Ketones Negative Urine Occult Blood Negative Urine Nitrate Negative Urine Bilirubin Negative Urine Urobilinogen Normal Ur Leukocyte Esterase Negative Ur Culture Indicated? No POC Troponin I < 0.02 09/29/22 09/29/22 09/29/22 10:30 10:25 10:25 WBC RBC Hgb Hct MCV MCH MCHC RDW Plt Count MPV Immature Gran % (Auto) Neut % (Auto) Lymph % (Auto) Power % (Auto) Eos % (Auto) Baso % (Auto) Lymph # (Auto) Power # (Auto) Eos # (Auto) Baso # (Auto) Immature Gran # Absolute Neutrophils POC PT POC INR APTT 31.0 Total Bilirubin 0.2 Direct Bilirubin < 0.2 AST 17 ALT 24 Alkaline Phosphatase 83 Total Protein 6.6 Albumin 4.1 Globulin 2.5 TSH 2.62 Urine Color Urine Appearance Urine pH Ur Specific [place] Urine Protein Urine Glucose (UA) Urine Ketones Urine Occult Blood Urine Nitrate Urine Bilirubin Urine Urobilinogen Ur Leukocyte Esterase Ur Culture Indicated? POC Troponin I 09/29/22 10:25 WBC 6.2 RBC 4.26 Hgb 12.6 Hct 39.1 MCV 91.8 MCH 29.6 MCHC 32.2 RDW 12.4 Plt Count 255 MPV 10.2 Immature Gran % (Auto) 0.3 Neut % (Auto) 64.3 Lymph % (Auto) 24.1 Power % (Auto) 8.6 Eos % (Auto) 1.9 Baso % (Auto) 0.8 Lymph # (Auto) 1.49 L Power # (Auto) 0.53 Eos # (Auto) 0.12 Baso # (Auto) 0.05 Immature Gran # 0.02 Absolute Neutrophils 3.98 POC PT POC INR APTT Total Bilirubin Direct Bilirubin AST ALT Alkaline Phosphatase Total Protein Albumin Globulin TSH Urine Color Urine Appearance Urine pH Ur Specific [place] Urine Protein Urine Glucose (UA) Urine Ketones Urine Occult Blood Urine Nitrate Urine Bilirubin Urine Urobilinogen Ur Leukocyte Esterase Ur Culture Indicated? POC Troponin I Discharge Plan Patient/Caregiver Discharge Instructions Activity: resume usual activities as tolerated Prescriptions: Continued pantoprazole 40 mg tablet,delayed release (DR/EC) 40 mg PO QDAY magnesium oxide 400 mg tablet 500 mg PO HS cyanocobalamin (vitamin B-12) [Vitamin B-12] 500 mcg tablet 500 mcg PO QDAY estradiol 1 mg tablet 1 mg PO QDAY Qty: 90 3RF rosuvastatin 5 mg tablet 5 mg PO QDAY Qty: 90 3RF solifenacin 5 mg tablet 5 mg PO QDAY Qty: 90 3RF bupropion HCl 300 mg tablet extended release 24 hr 300 mg PO DAILY Qty: 90 3RF aspirin [Aspir-81] 81 mg tablet,delayed release (DR/EC) 81 mg PO .3x/week Rx Instructions: Tuesday, Tuesday, Tuesday melatonin 5 mg Tablet 5 mg PO HS PRN (Reason: Sleep) Follow Up Plan Follow up with: Matt Dawson DO [Primary Care Provider] - Patient Disposition: Home, Self-Care Prognosis: Fair Rehab Potential: Good Overall status at discharge: patient is back to baseline Discharge Orders: Discharge Order (Routine); Ordered 09/30/22 Ordered By: Tim CALDERA VTE Deep Vein Thrombosis/Pulmonary Embolism Present on Admission: No
== END 2022-09-30 11:20 | disposition home or self-care (01) ==
LOC: ICU 09:49 → ED 09:49 → ICU 14:15
PROVIDERS: ADMIT Student in an Organized Health Care Education/Training Program; ATTEND Student in an Organized Health Care Education/Training Program